=== PATIENT | male | born 1935 | race Caucasian/White ===

== ENCOUNTER 2019-04-15 11:01 | Emergency (ER) | payer MEDICARE ==
[~2019-04-15] VITALS: Ht 182.9 cm; Wt 113.6 kg
[~2019-04-15 11:01] MED LIST: APIX2.5T PO; CEPH-357 PO; HYDR-3965 PO; HYDR12.522 PO; LOSA25TA96 PO; OMEP-84 PO; RANI300C7 PO; TRAM50TA2 PO; ZOC40T PO
[2019-04-15] MEDS ORDERED: acetaminophen 325mg tablet PO ONE (11:25)
--- NOTE | 2019-04-15 11:53 | NUR ---
SPOKE WITH FRIENDS/NEIGHBORS AT BEDSIDE, STATED WHEN THEY CALLED PAT LAST NIGHT, PAT WAS DISORIENTED AND NEIGHBOR STATES IT MIGHT BE RELATED TO PAT SLEEPING. WHEN NEIGHBOR CALLED BACK PAT WAS ALERT AND TALKATIVE BUT AN INCREASE IN CONFUSION WAS PRESENT. PER FRIENDS AT BEDSIDE PAT HAS ASKED FOR HIS X3 IN THE PAST 15 MIN SINCE THEY ARRIVED WHEN PAT SHOULD BE AWARE HIS IS AT A REHAB FACILITY. DR SANCHES MADE AWARE, UPDATED FAMILY ON PLAN OF CARE.
--- NOTE | 2019-04-15 12:01 | NUR ---
TO CT AT THIS TIME.
[2019-04-15 12:28] LABS: BASOPHILS % (AUTO) 0.5 % (0-1); EOSINOPHILS # (AUTO) 0.3 X10'3 (0-0.9); EOSINOPHILS % (AUTO) 4.1 % (0-6); HEMATOCRIT 40.7 % (42.0-52.0); LYMPHOCYTES # (AUTO) 1.1 X10'3 (1.1-4.8); LYMPHOCYTES % (AUTO) 17.3 % (21-51); MEAN CORPUSCULAR HEMOGLOBIN 34.6 PG (27.0-31.0); MEAN CORPUSCULAR HGB CONC 34.3 g/dL (33.0-36.5); MEAN CORPUSCULAR VOLUME 100.9 FL (78-98); MEAN PLATELET VOLUME 7.2 FL (7.4-10.4); MONOCYTES # (AUTO) 0.8 X10'3 (0-0.9); MONOCYTES % (AUTO) 12.3 % (2-12); NEUTROPHILS # (AUTO) 4.1 X10'3 (1.8-7.7); NEUTROPHILS % (AUTO) 65.8 % (42-75); PLATELET COUNT 252 X10'3 (140-440); RED BLOOD COUNT 4.03 X10'6 (4.70-6.10); WHITE BLOOD COUNT 6.2 X10'3 (4.5-11.0)
[2019-04-15 12:47] LABS: ALANINE AMINOTRANSFERASE 21 U/L (12-78); ALBUMIN 3.6 G/DL (3.4-5.0); ALBUMIN/GLOBULIN RATIO 0.9 (1.1-1.5); ALKALINE PHOSPHATASE 42 IU/L (46-116); ANION GAP 7 (8-16); ASPARTATE AMINO TRANSFERASE 21 U/L (10-37); BILIRUBIN,TOTAL 1.7 MG/DL (0.1-1.0); BLOOD UREA NITROGEN 31 MG/DL (7-18); BUN/CREATININE RATIO 25.4 (5.4-32.0); CALCIUM 9.2 MG/DL (8.5-10.1); CHLORIDE 101 MMOL/L (99-107); CREATININE 1.22 MG/DL (0.60-1.10); GLUCOSE 163 MG/DL (70-104); POTASSIUM 4.5 MMOL/L (3.5-5.1); SODIUM 137 MMOL/L (135-145); TOTAL CARBON DIOXIDE 28.9 MMOL/L (24-32); TOTAL PROTEIN 7.5 G/DL (6.4-8.2); eGFR 56 ML/MIN
[2019-04-15 12:49] LABS: CLARITY,URINE CLEAR (Clear); COLOR,URINE YELLOW (Yellow); GLUCOSE, URINE NEGATIVE (Neg); KETONES,URINE NEGATIVE (Neg); LEUKOCYTE ESTERASE ,URINE NEGATIVE (Neg); NITRITES, URINE NEGATIVE (Neg); OCCULT BLOOD,URINE NEGATIVE (Neg); PH,URINE 5.5 (4.8-8.0); PROTEIN,URINE TRACE mg/dl (Neg)
[2019-04-15 12:50] LABS: ETHANOL < 0.010 GM/DL (0.0-0.010)
[2019-04-15 12:51] LABS: UA COLLECTION TYPE VOIDED
[2019-04-15 12:58] LABS: BACTERIA,URINE NONE SEEN /HPF (Neg); MUCUS STRANDS FEW /LPF (Neg); RBC,URINE 0-2 /HPF (0-2); SQUAMOUS EPITHELIAL CELL,UR FEW /LPF (FEW); WBC,URINE 0-4 /HPF (0-4)
[2019-04-15 12:59] LABS: URINE AMPHETAMINE SCREEN NEGATIVE (Neg); URINE BARBITUATE SCREEN NEGATIVE (Neg); URINE BENZODIAZEPINES SCREEN NEGATIVE (Neg); URINE CANNABINOID SCREEN NEGATIVE (Neg); URINE COCAINE SCREEN NEGATIVE (Neg); URINE METHADONE SCREEN NEGATIVE (Neg); URINE OPIATE SCREEN NEGATIVE (Neg); URINE PHENCYCLIDINE SCREEN NEGATIVE (Neg)
--- NOTE | 2019-04-15 13:06 | NUR ---
PAT ASSISTED TO SITTING UP AT EDGE OF BED PER PATIENT REQUEST, FRIENDS X3 AT BEDSIDE, ALL SAFETY MEASURES IN PLACE.
[2019-04-15 13:33] VITALS: BP 121/78
== END 2019-04-15 13:35 | disposition home or self-care (01) ==
LOC: ER 11:01
DX: S80.12XA Contusion of left lower leg, initial encounter (principal); M25.562 Pain in left knee; R41.82 Altered mental status, unspecified; I48.91 Unspecified atrial fibrillation; I25.10 Atherosclerotic heart disease of native coronary artery without angina pectoris; E78.00 Pure hypercholesterolemia, unspecified; I10 Essential (primary) hypertension; K21.9 Gastro-esophageal reflux disease without esophagitis; Z88.8 Allergy status to other drugs, medicaments and biological substances; Z79.2 Long term (current) use of antibiotics; Z79.899 Other long term (current) drug therapy; Z98.890 Other specified postprocedural states; W01.0XXA Fall on same level from slipping, tripping and stumbling without subsequent striking against object, initial encounter; Y93.89 Activity, other specified; Y92.89 Other specified places as the place of occurrence of the external cause; Y99.8 Other external cause status; I49.9 Cardiac arrhythmia, unspecified; M54.9 Dorsalgia, unspecified; Z95.0 Presence of cardiac pacemaker; Z91.81 History of falling
CPT/HCPCS: 36415; 70450; 71045; 73564; 80053; 80305; 80320; 81001; 85025; 85610; 93005; 99284

== ENCOUNTER 2022-02-10 08:32 | Day surgery (SDC) | payer MEDICARE ==
[2022-02-09 12:58] LABS: BASOPHILS # (AUTO) 0.1 X10'3 (0-0.2); BASOPHILS % (AUTO) 1.2 % (0-1); EOSINOPHILS # (AUTO) 0.3 X10'3 (0-0.9); HEMATOCRIT 37.8 % (42.0-52.0); HEMOGLOBIN 12.4 g/dl (14.0-17.9); LYMPHOCYTES # (AUTO) 1.4 X10'3 (1.1-4.8); LYMPHOCYTES % (AUTO) 25.9 % (21-51); MEAN CORPUSCULAR HEMOGLOBIN 31.5 PG (27.0-31.0); MEAN CORPUSCULAR HGB CONC 32.7 g/dL (33.0-36.5); MEAN CORPUSCULAR VOLUME 96.5 FL (78-98); MONOCYTES # (AUTO) 0.7 X10'3 (0-0.9); MONOCYTES % (AUTO) 12.5 % (2-12); NEUTROPHILS # (AUTO) 2.9 X10'3 (1.8-7.7); NEUTROPHILS % (AUTO) 54.4 % (42-75); PLATELET COUNT 270 X10'3 (140-440); RED BLOOD COUNT 3.92 X10'6 (4.70-6.10); RED CELL DISTRIBUTION WIDTH 17.8 % (11.5-14.5); WHITE BLOOD COUNT 5.4 X10'3 (4.5-11.0)
[2022-02-09 13:05] LABS: ALBUMIN 3.8 G/DL (3.4-5.0); ANION GAP 7 (8-16); BLOOD UREA NITROGEN 22 MG/DL (7-18); BUN/CREATININE RATIO 22.9 (5.4-32.0); CALCIUM 8.9 MG/DL (8.5-10.1); CHLORIDE 106 MMOL/L (99-107); CREATININE 0.96 MG/DL (0.60-1.10); GLUCOSE 116 MG/DL (70-104); POTASSIUM 4.7 MMOL/L (3.5-5.1); SODIUM 140 MMOL/L (135-145); TOTAL CARBON DIOXIDE 26.7 MMOL/L (24-32); eGFR 74 ML/MIN
[2022-02-09 13:09] LABS: APTT 28 SECONDS (22-32)
[~2022-02-10] VITALS: Ht 182.9 cm; Wt 89.0 kg
[2022-02-10] VITALS (10 sets, daily range): BP systolic 110–134; BP diastolic 62–83
[2022-02-10] MEDS ORDERED: cefazolin/dext.iso 2gm/100ml 100 ML IV ONE (08:55)
[2022-02-10] MEDS ORDERED: normal saline 1000ml 1,000 ML IV SCH ×2 (08:56→12:00)
[2022-02-10] MEDS ORDERED: APIX5TAB3 PO (09:36)
[2022-02-10] MEDS ORDERED: POTA-206 PO (09:43)
[2022-02-10] MEDS ORDERED: FURO20TA4 PO (09:43)
[2022-02-10] MEDS ORDERED: SOTA80TA PO (09:43)
[2022-02-10] MEDS ORDERED: PIOG15TA67 PO (09:43)
[2022-02-10] MEDS ORDERED: METF-1203 PO (09:43)
[2022-02-10] MEDS ORDERED: Prevagen PO (09:43)
[2022-02-10] MEDS ORDERED: fentaNYL/PF 50MCG/1 ML 2ML syringe ONE (10:10)
[2022-02-10] MEDS ORDERED: LIDOcaine 1% W/epiNEPHrine 1:100,000 20ml vial ONE (10:10)
[2022-02-10] MEDS ORDERED: ceFAZolin 1000mg inj ONE (10:10)
[2022-02-10] MEDS ORDERED: midazolam 1 mg/ML 2ml injection ONE (10:10)
[2022-02-10] MEDS ORDERED: vancomycin/NS 1 GM ADD-VANTAGE 250 ML X 1 DOSE IV ONE (12:30)
== END 2022-02-10 15:05 | disposition home or self-care (01) ==
LOC: SSTAY O 08:32
PROVIDERS: ATTEND Internal Medicine Cardiovascular Disease
DX: Z45.010 Encounter for checking and testing of cardiac pacemaker pulse generator [battery] (principal); I47.2 Ventricular tachycardia; I49.5 Sick sinus syndrome; I10 Essential (primary) hypertension; I48.91 Unspecified atrial fibrillation; K21.9 Gastro-esophageal reflux disease without esophagitis; M19.90 Unspecified osteoarthritis, unspecified site; I35.0 Nonrheumatic aortic (valve) stenosis; E78.5 Hyperlipidemia, unspecified; I48.0 Paroxysmal atrial fibrillation; Z79.899 Other long term (current) drug therapy; Z98.890 Other specified postprocedural states; Z83.3 Family history of diabetes mellitus; Z80.8 Family history of malignant neoplasm of other organs or systems
CPT/HCPCS: 33228; 36415; 80048; 82948; 85025; 85610; 85730; 93005; 99152; 99153; C1785; C1894; C1898; J0690; J2250; J3010; J3370; J3490; J7030; A4620; C1786